=== PATIENT | male | born 1975 | race Caucasian/White ===

== ENCOUNTER → 2017-09-11 | Outpatient (CLI) | payer OTHER ==
[~2017-09-11] MED LIST: ACET-1256 PO; ANTICRE6 PO; CEPH-571 PO; OXYC-57 PO; TAMS0.4C38 PO
--- NOTE | 2017-09-11 15:28 | DIAGNOSTIC IMAGING REPORT ---
CHEST 2 VIEWS ROUTINE CLINICAL HISTORY: N20.1 Ureteric stone preoperative evaluation COMPARISON STUDY: No previous studies for comparison. FINDINGS: The bones soft tissues and hemidiaphragms are normal. The cardiomediastinal silhouette is normal. The lungs are clear. The pulmonary vasculature is normal. IMPRESSION: Negative chest. The above report was generated using voice recognition software. It may contain grammatical, syntax or spelling errors. Electronically signed by: Chris Uriostegui M.D. 09/11/2017 3:26 PM Dictated Date/Time: 09/11/2017 3:26 PM
== END | disposition home or self-care (01) ==
LOC: C.RAD 15:02
PROVIDERS: ATTEND Urology
DX: N20.1 Calculus of ureter (principal)

== ENCOUNTER → 2017-09-18 | Outpatient (CLI) | payer OTHER ==
--- NOTE | 2017-09-18 15:18 | DIAGNOSTIC IMAGING REPORT ---
KUB CLINICAL HISTORY: Nephrolithiasis. Right ureteral stone. FINDINGS: AP supine abdominal radiograph is correlated with abdominal CT dated 09/03/2017. Nephrolithiasis. There are least 4 punctate nonobstructing calculi projecting over the right kidney. No calcifications are seen projecting over the left kidney or along the course of the ureters. Phleboliths are noted in the left hemipelvis. There is no bowel obstruction. Colonic fecal retention is observed. The bony structures appear intact. IMPRESSION: 1. There are small nonobstructing right renal calculi. 2. The right ureteral calculus seen by CT on 09/03/2017 is not apparent on today's KUB. Electronically signed by: Nik Toribio M.D. 09/18/2017 3:16 PM Dictated Date/Time: 09/18/2017 3:14 PM
== END | disposition home or self-care (01) ==
LOC: C.RAD 14:56
PROVIDERS: ATTEND Urology
DX: N20.1 Calculus of ureter (principal); N20.0 Calculus of kidney

== ENCOUNTER → 2017-09-19 | Day surgery (SDC) | payer OTHER ==
[2017-09-15 07:58] VITALS: Ht 180.3 cm; Wt 88.6 kg
[~2017-09-19] VITALS: Ht 180.3 cm; Wt 88.6 kg
[~2017-09-19] MED LIST changes: +CIPROFLOXACIN 400MG / D5W IV SCH; +LACTATED RINGER'S 1000ML 1,000 ML IV SCH
[2017-09-19 08:17] VITALS: BP 113/67; PULSE 94; TEMP 36.7; O2SAT 98
== END | disposition home or self-care (01) ==
LOC: X.SURG 07:43
PROVIDERS: ATTEND Urology
DX: N20.1 Calculus of ureter (principal); Z53.8 Procedure and treatment not carried out for other reasons; E78.5 Hyperlipidemia, unspecified; K21.9 Gastro-esophageal reflux disease without esophagitis; F41.9 Anxiety disorder, unspecified; Z79.899 Other long term (current) drug therapy

== ENCOUNTER → 2017-09-29 | Outpatient (CLI) | payer OTHER ==
[~2017-09-29] MED LIST changes: -CIPROFLOXACIN 400MG / D5W IV SCH; -LACTATED RINGER'S 1000ML 1,000 ML IV SCH
--- NOTE | 2017-09-29 14:52 | DIAGNOSTIC IMAGING REPORT ---
ULTRASOUND KIDNEYS AND BLADDER CLINICAL HISTORY: Nephrolithiasis. COMPARISON STUDY: Abdominal CT dated 09/03/2017 TECHNIQUE: Real-time, grayscale, and color flow sonography of the kidneys and bladder is performed. Images are reviewed in the transverse and longitudinal planes. FINDINGS: Kidneys: The kidneys are normal in size and echotexture. The right kidney measures 12.9 cm in length and the left kidney measures 12.9 cm in length. There is no hydronephrosis. There are small bilateral nonobstructing renal calculi. There is no sonographic evidence of contour deforming renal mass lesion. No perinephric fluid is identified. Bladder: The bladder is normal in appearance. Bilateral ureteral jets were seen. Upper abdomen: Survey images of the liver show evidence of hepatomegaly and hepatic steatosis. IMPRESSION: 1. The kidneys are normal in size and without hydronephrosis. 2. The bladder is normal in appearance. Both ureteral jets were seen. 3. Small bilateral nonobstructing calculi are identified in both kidneys. 4. Hepatomegaly and hepatic steatosis. Electronically signed by: Nik Toribio M.D. 09/29/2017 2:51 PM Dictated Date/Time: 09/29/2017 2:48 PM
== END | disposition home or self-care (01) ==
LOC: C.ULTR 14:20
PROVIDERS: ATTEND Urology
DX: N20.2 Calculus of kidney with calculus of ureter (principal); R16.0 Hepatomegaly, not elsewhere classified; K76.0 Fatty (change of) liver, not elsewhere classified

== ENCOUNTER → 2018-04-13 | Outpatient (CLI) | payer OTHER ==
[~2018-04-13] MED LIST changes: -ANTICRE6 PO
--- NOTE | 2018-04-13 15:15 | DIAGNOSTIC IMAGING REPORT ---
KUB CLINICAL HISTORY: N40.0 Benign prostatic hypertrophy without urinary obstructionRA nephrocalcinosis COMPARISON STUDY: 09/18/2017 FINDINGS: Multiple punctate right renal calcifications. These are unchanged. No significant left-sided calcifications. Abdominal and pelvic region otherwise appear unremarkable. Several pelvic vascular calcifications of the left. IMPRESSION: 1. Unchanging right renal nephrocalcinosis. No evidence for new interval or acute finding. The above report was generated using voice recognition software. It may contain grammatical, syntax or spelling errors. Electronically signed by: Chris Uriostegui M.D. 04/13/2018 3:14 PM Dictated Date/Time: 04/13/2018 3:13 PM
== END | disposition home or self-care (01) ==
LOC: C.RAD 14:37
PROVIDERS: ATTEND Urology
DX: N20.0 Calculus of kidney (principal); N40.0 Benign prostatic hyperplasia without lower urinary tract symptoms